=== PATIENT | female | born 1965 | race Caucasian/White ===

== ENCOUNTER 2020-05-27 20:05 | Emergency (ER) | payer OTHER ==
[~2020-05-27] VITALS: Ht 152.4 cm; Wt 70.3 kg
[2020-05-27 20:42] VITALS: BP 118/68
--- NOTE | 2020-05-27 20:56 | NUR ---
PATIENT CAME TO THE ER BED 3 C/O LEFT EAR PAIN W/ TINNITUS. PATIENT STATES THAT 2x DAYS AGO SHE HAD CLEANED HER EARS W/ A Q-TIP AND SHE SHOVED IT TOO DEEP WHICH STARTED THE PAIN AND THE RINGING. NO DRAINAGE FROM THE EAR. PATIENT IS AAOX4. BREATHING EVENLY AND UNLABORED ON ROOM AIR.
[2020-05-27] MEDS ORDERED: IBUPROFEN 600 MG TABLET PO ONE (21:30)
[2020-05-27] MEDS ORDERED: HYDROCODONE/APAP 5/325MG TABLET PO ONE (21:30)
[2020-05-27] MEDS ORDERED: HYDROCODONE/APAP 5/325MG TABLET ONE (21:38)
[2020-05-27] MEDS ORDERED: IBUPROFEN 600 MG TABLET ONE (21:39)
[2020-05-27] MEDS ORDERED: HYDR-3972 PO (22:14)
== END 2020-05-27 22:20 | disposition home or self-care (01) ==
LOC: ER 20:11
DX: H92.02 Otalgia, left ear (principal); H72.92 Unspecified perforation of tympanic membrane, left ear; Z90.710 Acquired absence of both cervix and uterus; Z79.899 Other long term (current) drug therapy